=== PATIENT | male | born 1935 | race Caucasian/White ===

== ENCOUNTER 2017-08-19 11:54 | Emergency (ER) | payer OTHER ==
[~2017-08-19] VITALS: Ht 170.2 cm; Wt 78.0 kg
[2017-08-19 11:58] VITALS: BP 153/64
[2017-08-19] MEDS ORDERED: KEFLEX500 M1 PO (13:48)
[2017-08-19] MEDS ORDERED: HYDROCODONE-AP1 EAC6 PO (13:48)
== END 2017-08-19 14:20 | disposition home or self-care (01) ==
LOC: ER 11:54
DX: S62.632B Displaced fracture of distal phalanx of right middle finger, initial encounter for open fracture (principal); W22.8XXA Striking against or struck by other objects, initial encounter; Y93.89 Activity, other specified; Y92.89 Other specified places as the place of occurrence of the external cause; Y99.8 Other external cause status

== ENCOUNTER → 2018-01-28 | Outpatient (CLI) | payer OTHER ==
[~2018-01-28] MED LIST: HYDROCODONE-AP1 EAC6 PO; KEFLEX500 M1 PO
== END ==
LOC: RAD 09:55
DX: Z11.59 Encounter for screening for other viral diseases (principal); J98.4 Other disorders of lung; Z79.899 Other long term (current) drug therapy